=== PATIENT | female | born 1965 | race Caucasian/White ===

== ENCOUNTER → 2016-12-06 | Outpatient (CLI) | payer OTHER ==
[~2016-12-06] MED LIST: ALBUAER3 INH; ENOX30P SQ; GLUC250C5 PO; GLUCTAB6 PO; HYDR-3516 PO; HYDR-3533 PO; IBUP800 PO; IBUP800T23 PO; JANT5TAB2 PO; LORA-361 PO; LORA10TA PO; OMEP20TA PO; OMEP20TA39 PO; PAXI20TA PO; PAXI20TA26 PO; WARF-60 PO
[2016-12-06 10:48] LABS: AUTOMATED NEUTROPHIL # 3.8 TH/MM3 (1.8-7.7); BASOPHIL % 0.7 % (0.0-2.0); EOSINOPHIL # 0.1 TH/MM3 (0-0.4); HEMATOCRIT 38.2 % (35.0-46.0); HEMO FLAGS DIFF FINAL; LYMPH % 30.6 % (9.0-44.0); LYMPHOCYTE # 1.9 TH/MM3 (1.0-4.8); MEAN CELL VOLUME 91.4 FL (80.0-100.0); MEAN CORPUSCULAR HEMOGLOBIN 31.6 PG (27.0-34.0); MEAN CORPUSCULAR HGB CONC 34.6 % (32.0-36.0); MONO % 6.3 % (0.0-8.0); NEUT % 60.4 % (16.0-70.0); PLATELET COUNT 308 TH/MM3 (150-450); RED BLOOD COUNT 4.17 MIL/MM3 (4.00-5.30); RED CELL DISTRIBUTION WIDTH 12.8 % (11.6-17.2); WHITE BLOOD COUNT 6.2 TH/MM3 (4.0-11.0)
[2016-12-06 10:57] LABS: BLOOD, URINE SMALL (NEG); GLUCOSE,URINE NEG (NEG); KETONE, URINE NEG (NEG); MUCUS URINE FEW /lpf (OCC); NITRITE,URINE NEG (NEG); PH, URINE 6.5 (5.0-8.5); SQUAMOUS EPITHELIAL CELL URINE 1 /hpf (0-5); URINE COLOR YELLOW (YELLW/STRAW)
[2016-12-06 11:19] LABS: BICARBONATE 29.7 MEQ/L (21.0-32.0)
--- NOTE | 2016-12-06 14:34 | EKG ---
Date Performed: 12/06/2016 Time Performed: 10:26:49 PTAGE: 51 years EKG: Sinus rhythm LOW QRS VOLTAGE IN PRECORDIAL LEADS BORDERLINE ECG NO PREVIOUS TRACING DOCTOR: Dwayne Rosenbaum Interpretating Date/Time 12/06/2016 14:28:46
== END ==
LOC: CPRE 10:03
PROVIDERS: ATTEND Obstetrics & Gynecology
DX: Z01.812 Encounter for preprocedural laboratory examination (principal); Z01.810 Encounter for preprocedural cardiovascular examination; N81.89 Other female genital prolapse; R94.31 Abnormal electrocardiogram [ECG] [EKG]
CPT/HCPCS: 80048; 81001; 85025; 93005

== ENCOUNTER 2016-12-09 07:44 | Observation (INO) | payer OTHER ==
--- NOTE | 2016-12-06 14:54 | MH ---
cc: ANJANA RAY EVAN D. M.D. DATE OF ADMISSION: 12/09/2016 SCHEDULED PROCEDURE Anterior repair, transobturator tape, possible posterior repair. INDICATION Mixed incontinence with a severe stress component but also significant urgent component. HISTORY OF PRESENT ILLNESS The patient is a 51-year-old white female, para 2 status post LASH approximately 9 years ago for unacceptable bleeding. She underwent two vaginal births, the largest was over 10 pounds. Subsequent to her menopause she was started on hormone therapy. She developed a PE, saw Dr. 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 Over the past several years she has done well on her Coumadin but she has had increasing incontinence when she coughs, laughs or sneezes. She notices it occurring when she goes from lying down to sitting or sitting to standing. She has to get up multiple times during the night and always has to know where the nearest bathroom is. Her bowels are regular and she does strain occasionally. She does not have any symptoms of urinary tract infection such as bleeding, smell, odor or pain with urination. On physical her cervix actually has no descent but she has a cystourethrocele and a positive Q-tip test with a negative residual and no evidence of infection. I have discussed the possibility of a sling procedure after she was off her Coumadin and she will have been off it for 5 days come morning having taken Heparin until the night before. We will do the procedure and then she will subsequently resume her heparin and then Coumadin. PAST MEDICAL HISTORY Her general health is otherwise fairly stable. She has had a history of: 1. Some stomach ulcers. 2. Migraines. 3. Back pain. 4. Depression. 5. Asthma. 6. She is above her ideal body weight. MEDICATIONS Her medications include: 1. Omeprazole. 2. Paroxetine. 3. Jantoven. 4. Cyclobenzaprine. 5. Warfarin. PHYSICAL EXAMINATION VITAL SIGNS: Weight is 312. Her blood pressure is 120/80. NECK: She has no thyromegaly. LUNGS: Lungs are clear. HEART: Rate and rhythm are regular. ABDOMEN: Abdomen is obese. PELVIC: Perineum is estrogenized, vault is elevated. The cervix is well elevated. The bladder does come down with Valsalva. She has two positive Q-tip tests and negative urinalysis. She has a moderate rectocele and no blood in the stool. IMPRESSION Stress and urge incontinence with a stress component of significance, desires to have this portion of the incontinence issues addressed. She understands her biggest risk is not meeting her expectations, that the surgery does not address the mixed or urge constancy component. She understands she may need additional medication such as Myrbetriq after the surgery. The risks, benefits, expectations have been described in detail and she is scheduled for morning. Anjana Ray MD PPC/TLL /2:10 PM /2:28 PM
[~2016-12-09] VITALS: Ht 177.8 cm; Wt 140.7 kg
[~2016-12-09 07:44] MED LIST changes: -GLUC250C5 PO; -HYDR-3533 PO; -IBUP800 PO; -JANT5TAB2 PO; -LORA10TA PO; -OMEP20TA39 PO; -PAXI20TA26 PO
[2016-12-09] MEDS ORDERED: SODIUM CHLORID 0.9% 500 ML IV PRN (08:15)
[2016-12-09] MEDS ORDERED: ceFAZolin 2 GM PREMIX 50 ML IV SCH (08:15)
[2016-12-09] MEDS ORDERED: POVIDONE IODINE 5% (ANTISEPSIS KIT) 4 APPLICATIONS EACH NARE PRN (08:15)
[2016-12-09] MEDS ORDERED: METOPROLOL TARTRATE 25 MG TAB PO PRN (08:15)
[2016-12-09] MEDS ORDERED: CHLORHEXIDINE GLUCONATE 2 % 1 PACK (2 CLOTHS) TOPICAL PRN (08:15)
[2016-12-09] MEDS ORDERED: INSULIN HUMAN REGULAR 1,000 UNITS/10 ML VIAL SQ PRN (08:15)
[2016-12-09] MEDS ORDERED: LACTATED RINGER'S 1000 ML IV PRN (08:15)
[2016-12-09 08:38] VITALS: BP 155/78; PULSE 81; RESP 18; TEMP 97.9; O2SAT 99
[2016-12-09 09:10] LABS: PROTHROMBIN TIME - PATIENT 10.7 SEC (9.8-11.6)
[2016-12-09] MEDS ORDERED: MIDAZOLAM HCL 2 MG/2 ML VIAL ONE (10:01)
[2016-12-09] MEDS ORDERED: BUPIVACAINE/EPINEPHRINE 0.25% PF 30 ML VIAL ONE (10:14)
[2016-12-09] MEDS ORDERED: ESTROGENS CONJUGATED VAG CREA 15 APPL/30 GM TUBE ONE (10:14)
[2016-12-09] MEDS ORDERED: ACETAMINOPHEN 1000 MG/100 ML VIAL IV ONE ×2 (10:15→12:00)
[2016-12-09] MEDS ORDERED: fentaNYL CITRATE 250 MCG/5 ML AMP ONE ×2 (10:15→12:02)
[2016-12-09] MEDS ORDERED: PROPOFOL 200 MG/20 ML AMP IV ONE (11:14)
[2016-12-09] MEDS ORDERED: ONDANSETRON HCL 4 MG/2 ML VIAL IV PUSH ONE (11:14)
--- NOTE | 2016-12-09 11:53 | PD.OP ---
Operative Report Date of Surgery: Dec 09, 2016 Preoperative Diagnosis: stress urinary incontinence with cystocele mild rectocoele Postoperative Diagnosis: same Procedure: anterior repair with solyx TOT cystoscopy Anesthesia: GET Surgeon: Annie Murphy Ribbon Hanking Machine Operator(s): Franki Operation and Findings: Annie Verma MD Dec 09, 2016 11:53
[2016-12-09] MEDS ORDERED: HYDROmorphone HCL PF 1 MG/ML VIAL IVP PRN (12:00)
[2016-12-09] MEDS ORDERED: oxyCODONE/ACETAMINOPHEN 5 MG/325 MG TAB PO PRN (12:00)
[2016-12-09] MEDS ORDERED: ZOLPIDEM TARTRATE 5 MG TAB PO PRN (12:00)
[2016-12-09] MEDS ORDERED: ONDANSETRON HCL 4 MG/2 ML VIAL IVP PRN (12:00)
[2016-12-09] MEDS ORDERED: SODIUM CHLORIDE 0.9% FLUSH 10 ML FLUSH IV FLUSH PRN (12:00)
[2016-12-09] MEDS ORDERED: DO NOT ADM ANY ANTICOAGULANT DRUGS PRN (12:00)
[2016-12-09] MEDS ORDERED: *morphine SULFATE 8 MG/ML PERIprocedure ONLY ONE ×2 (12:36→16:13)
[2016-12-09] MEDS ORDERED: *RESP: ALBUTEROL 2.5 MG/3 ML NEB (PRN) PERIprocedural Use ONLY NEB ONE (16:35)
[2016-12-09 17:00] VITALS: BP 145/74; PULSE 89; RESP 20; TEMP 97.5; O2SAT 92
[2016-12-09] MEDS: DOCUSATE SODIUM 100 MG CAP PO SCH ×2 (18:19→22:45)
[2016-12-09 20:00] VITALS: BP 147/67; PULSE 99; RESP 19; TEMP 97.5; O2SAT 97
[2016-12-09] MEDS ORDERED: SODIUM CHLORIDE 0.9% FLUSH 10 ML FLUSH IV FLUSH SCH (21:00)
[2016-12-09 21:50] VITALS: O2SAT 97
[2016-12-09] MEDS: oxyCODONE/ACETAMINOPHEN 5 MG/325 MG TAB PO PRN (22:46)
[2016-12-09 23:00] VITALS: BP 126/66; PULSE 93; RESP 17; TEMP 97.7; O2SAT 94
--- NOTE | 2016-12-10 01:41 | HHI.DCPOC ---
Discharge Care Plan Report Symptoms to Your Doctor -Temperate above 100.5 degrees -Redness, of incision or excessive or foul smelling drainage -Unusual pain or calf pain -Increased vaginal bleeding -Painful or difficulty urinating -Feelings of extreme sadness or anxiety after 2 weeks Goals to Promote Your Health * To prevent worsening of your condition and complications * To maintain your health at the optimal level Directions to Meet Your Goals Take your medications as prescribed Follow your dietary instruction Follow activity as directed Ensure plenty of rest for recovery Drink fluids for hydration Keep your appointments as scheduled Take your immunizations and boosters as scheduled If your symptoms worsen call your PCP, if no PCP go to Urgent Care Center or Emergency Room Smoking is Dangerous to Your Health. Avoid second hand smoke Call the 24-hour crisis hotline for domestic abuse at Annie Murphy MD Dec 10, 2016 01:41
[2016-12-10 05:40] VITALS: BP 135/68; PULSE 86; RESP 17; TEMP 96.2; O2SAT 95
[2016-12-10] MEDS: oxyCODONE/ACETAMINOPHEN 5 MG/325 MG TAB PO PRN (06:05)
[2016-12-10 07:11] LABS: BASOPHIL % 0.2 % (0.0-2.0); EOSINOPHIL % 0.1 % (0.0-4.0); HEMATOCRIT 39.5 % (35.0-46.0); HEMO FLAGS DIFF FINAL; LYMPH % 9.2 % (9.0-44.0); LYMPHOCYTE # 1.4 TH/MM3 (1.0-4.8); MEAN CELL VOLUME 93.1 FL (80.0-100.0); MEAN CORPUSCULAR HEMOGLOBIN 30.5 PG (27.0-34.0); MEAN CORPUSCULAR HGB CONC 32.8 % (32.0-36.0); MONO % 4.8 % (0.0-8.0); NEUT % 85.7 % (16.0-70.0); PLATELET COUNT 295 TH/MM3 (150-450); RED BLOOD COUNT 4.24 MIL/MM3 (4.00-5.30); RED CELL DISTRIBUTION WIDTH 12.8 % (11.6-17.2); WHITE BLOOD COUNT 15.2 TH/MM3 (4.0-11.0)
[2016-12-10 07:20] LABS: INTERNATIONAL NORMALIZED RATIO 0.9 RATIO; PROTHROMBIN TIME - PATIENT 10.2 SEC (9.8-11.6)
[2016-12-10 07:52] LABS: BICARBONATE 29.7 MEQ/L (21.0-32.0); POTASSIUM 3.8 MEQ/L (3.5-5.1)
[2016-12-10 08:10] VITALS: O2SAT 96
--- NOTE | 2017-01-13 08:00 | MP ---
cc: ANNIE RAY DATE OF 1965 DATE OF PROCEDURE December 09, 2016 CHIEF COMPLAINT Stress urinary incontinence and an anterior bulge consistent with cystocele. POSTOPERATIVE DIAGNOSIS Stress urinary incontinence and an anterior bulge consistent with cystocele. PROCEDURE Solyx transobturator tape placement, cystocele repair, cystourethroscopy. ANESTHESIA General. SURGEON MD Katherine [employer] [facility] staff. FINDINGS 1. Examination under anesthesia revealed a second to third degree cystourethrocele, well estrogenized tissues with no real paravaginal defect and minimal rectocele. 2. Subsequent to placement of the tape and Aleta plication, the vaginal vault was well elevated. 3. Bleeding was minimal. 4. Sponge, instrument and needle count were correct. 5. She tolerated the procedure well. PROCEDURE The patient was identified as Aicha Shi. Her permit was reviewed in holding. She was taken to the operating room, placed under general anesthesia in the dorsal lithotomy position. She was given 2 grams of Ancef, prepped and draped in the usual sterile fashion and Schaeffer catheter placed by the white sugar pan tank operator. A time-out was performed with all in attendance. She had sequential stockings on. Pelvic exam was performed and the perineum and the pelvic floor evaluated. She still had her cervix in place but had a previous LASH. The cervix was very well elevated. An area 1 cm below the urethra was grasped with an Allis and then down to the level of the cervix. This area was infiltrated with Marcaine with epinephrine and incised and then the vaginal mucosa was dissected off the anterior bladder and undermined well underneath the pubic rami on either side. At this point the Solyx transobturator tape was opened and the acorn of the transobturator tape was placed on the insertion device and pushed through the urogenital diaphragm on the patient's right and then on the left to be flush against the urethra but not cause any tension. The bladder was plicated below this using chromic to reduce redundancy and then mattress sutures were placed of the attenuated fascia in either side of urethra. A minimal amount of tissue was then excised and interrupteds were placed to reapproximate the vaginal mucosa. Prior to the mattress sutures, a 30-degrees cystoscope was placed into the bladder and there was no evidence of iatrogenic injury or intrinsic pathology. The Schaeffer at that point had been replaced. When the closure was completed, Premarin cream was placed into the vault. She was placed in dorsal supine position, awoken and taken to the recovery room in stable condition. Annie Ray MD PPC/SSB /1:29 PM /7:48 AM
== END 2016-12-10 09:16 | disposition home or self-care (01) ==
LOC: HSDC 07:44 → HSDI 11:51 → HOCA 16:53
PROVIDERS: ADMIT Obstetrics & Gynecology; ATTEND Obstetrics & Gynecology
DX: N39.46 Mixed incontinence (principal); N39.3 Stress incontinence (female) (male); N81.10 Cystocele, unspecified; N81.6 Rectocele; F32.9 Major depressive disorder, single episode, unspecified; J45.909 Unspecified asthma, uncomplicated; Z79.01 Long term (current) use of anticoagulants
CPT/HCPCS: 00942; 57240; 57288; 80048; 85025; 85610; 86850; 86900; 86901; 94150; 94664; C1771; G0378; J0131; J0690; J2250; J2270; J2405; J3010; J7120; J7613